=== PATIENT | male | born 1965 | race Caucasian/White ===

== ENCOUNTER 2017-03-17 09:21 | Emergency (ER) | payer OTHER ==
[~2017-03-17] VITALS: Ht 177.8 cm; Wt 95.3 kg
[2017-03-17] MEDS ORDERED: HYDR-971 PO (10:14)
[2017-03-17] MEDS ORDERED: SULF1TAB24 PO (10:14)
--- NOTE | 2017-03-17 10:15 | PHYS DOC ---
Past Medical History Past Medical History: No Pertinent History Past Surgical History: Other Additional Past Surgical Histo: NECK, SHOULDER X2- L, WRIST-L, BACK X2 Alcohol Use: Rarely Drug Use: None Adult General Chief Complaint Chief Complaint: LOWER EXTREMITY SWELLING HPI HPI Patient is a 51 year old male who presents with redness, pain, and swelling of his left knee area for 2 or 3 days. Last week, he ran into the sharp edge of a saw at work and had a puncture type laceration to his left leg which didn't bother him that much and he states didn't even bleed very much. He was fine until about 3 days ago when the anterior aspect of his leg he came red, swollen , and painful. He's had some chills yesterday. The pain and swelling is worse today. He has no history of cellulitis or MRSA. Not diabetic. He is in good general health. He does work at [employer] and is on his feet for his entire shift. Review of Systems Review of Systems Constitutional: He has had some chills, has not measured a temperature HENT: Denies nasal congestion or sore throat [] Respiratory: Denies cough or shortness of breath [] Cardiovascular: Denies chest pain GI: Some nausea, no vomiting : Denies dysuria or hematuria [] Musculoskeletal: Denies back pain or joint pain [] Integument: As in history of present illness Neurologic: Denies headache, focal weakness or sensory changes [] Physical Exam Physical Exam Constitutional: Well developed, well nourished, no acute distress, non-toxic appearance. Alert, mentating normally. HENT: Normocephalic, atraumatic, bilateral external ears normal, nose normal. [ ] Eyes: conjunctiva normal, no discharge. [] Neck: Normal range of motion, no stridor. [] Skin: Warm, dry, no erythema, no rash. [] Back: No tenderness, no CVA tenderness. [] Extremities: Left leg: There is a scabbed 1 cm benign-appearing laceration below the knee on the anterior aspect. There is generalized erythema, warmth, and swelling that goes from the mid lower leg to above the knee that has an appearance consistent with cellulitis. There is no area of abscess, no drainage from the laceration. The knee joint itself is mobile with good range of motion without pain. Neurologic: Alert and oriented X 3, normal motor function, normal sensory function, no focal deficits noted. [] Current Patient Data Vital Signs Vital Signs Date Time Temp Pulse Resp B/P (MAP) Pulse Ox O2 Delivery O2 Flow Rate FiO2 03/17/17 10:32 87 18 151/90 (110) 98 Room Air 03/17/17 09:30 97.8 97.8 EKG EKG [] Radiology/Procedures Radiology/Procedures [] Course & Med Decision Making Course & Med Decision Making Pertinent Labs and Imaging studies reviewed. (See chart for details) 51-year-old healthy nontoxic male presents with localized cellulitis to his left leg. It appears to have been started by a laceration about a week ago. There is no evidence of cellulitis. I discussed with the patient inpatient versus outpatient treatment of cellulitis. At this time he is stable and I believe a candidate for outpatient treatment. Return precautions were discussed. See instructions for plan. [] Dragon Disclaimer Dragon Disclaimer This electronic medical record was generated, in whole or in part, using a voice recognition dictation system. Departure Departure Impression: Primary Impression: Cellulitis of left leg Disposition: 01 HOME, SELF-CARE Condition: STABLE Patient Instructions: Cellulitis, [id number] Additional Instructions: For 3 days, try to stay off of your leg is much tissue can and keep elevated, elevation above the heart is ideal. This will help the pain and swelling, and also important for healing so good circulation can get to the infected tissue. We will start antibiotics for your infection. Take as directed. Drink plenty of fluids. Ibuprofen for pain if needed, purchase [id number] ibuprofen 200 mg and take 2-3 every 6 hours as needed for a stronger dose. If needed for more severe pain, hydrocodone which is an opiate. Do not take while working or driving. It will be sedating and constipating. Use sparingly. Scripts Hydrocodone/Apap 5-325 (NORCO 5-325 TABLET) 1 Each Tablet 1-2 TAB PO Q4-6HRS for leg pain, cellulitis, #20 TAB Prov: CAL MITCHELL MD 03/17/17 Sulfamethoxazole/Trimethoprim (BACTRIM DS TABLET) 1 Each Tablet 1 TAB PO BID for cellulitis of leg, #20 TAB Prov: CAL MITCHELL MD 03/17/17 CAL MITCHELL MD Mar 17, 2017 10:15
[2017-03-17 10:32] VITALS: BP 151/90
== END 2017-03-17 10:34 | disposition home or self-care (01) ==
LOC: ER 09:21
DX: L03.116 Cellulitis of left lower limb (principal)
CPT/HCPCS: 99283

== ENCOUNTER 2019-06-02 18:36 | Emergency (ER) | payer SELFPAY ==
[~2019-06-02] VITALS: Ht 177.8 cm; Wt 97.5 kg
[~2019-06-02 18:36] MED LIST: HYDR-3164 PO; SULF1TAB24 PO
[2019-06-02 19:52] VITALS: BP 202/113
[2019-06-02] MEDS ORDERED: FLUORESCEIN OPHTH TEST STRIP. ONE (19:58)
[2019-06-02] MEDS ORDERED: TETRACAINE 0.5% OPHTH SOLUTION 4ML BOTTLE. ONE (19:58)
[2019-06-02] MEDS ORDERED: [UNRECOGNIZED DRUG - REMARK] (20:03)
[2019-06-02] MEDS ORDERED: TETRACAINE 0.5% OPHTH SOLUTION 4ML BOTTLE. OD ONE (20:15)
[2019-06-02] MEDS ORDERED: FLUORESCEIN OPHTH TEST STRIP. OD ONE (20:15)
[2019-06-02] MEDS ORDERED: ERYTHROMYCIN 0.5% OPHTH OINTMENT 1GM TUBE. ONE (22:03)
--- NOTE | 2019-06-02 23:33 | PHYS DOC ---
Past Medical History Past Medical History: Hypertension Past Surgical History: Other Additional Past Surgical Histo: NECK, SHOULDER X2- L, WRIST-L, BACK X2 Alcohol Use: Rarely Drug Use: None Adult General Chief Complaint Chief Complaint: EYE PROBLEMS HPI HPI Patient is a 53 year old male who presents to the ER with complaints of metal in his right eye since 1200 today. Pt states he was grinding some metal when he felt something get stuck in his eye. His last tetanus shot was less than 2 years ago. Pt currently rates his pain a 5/10 on the pain scale, closing his eye helps to relieve the pain. The pain increases when he opens his eye or looks into bright light. He denies any vision changes. Review of Systems Review of Systems Constitutional: Denies fever or chills [] Eyes: Denies change in visual acuity,; see HPI Integument: Denies rash or skin lesions [] Neurologic: Denies headache Complete systems were reviewed and found to be within normal limits, except as documented in this note. Current Medications Current Medications Current Medications Medications (Trade) Dose Ordered Sig/Jose Alberto Start Time Stop Time Status Last Admin Dose Admin Erythromycin (Romycin) 1 inch STK-MED ONCE 06/02/19 22:03 06/02/19 22:03 DC Fluorescein Sodium (Ful-Hermelinda) 1 strip 1X ONCE 06/02/19 20:15 06/02/19 20:16 DC 06/02/19 20:12 1 STRIP Tetracaine HCl (Tetracaine) 1 drop 1X ONCE 06/02/19 20:15 06/02/19 20:16 DC 06/02/19 20:12 1 DROP Allergies Allergies Allergies Coded Allergies Type Severity Reaction Last Updated Verified No Known Drug Allergies 06/02/19 No Physical Exam Physical Exam Constitutional: Well developed, well nourished, no acute distress, non-toxic appearance. [] HENT: Normocephalic, atraumatic, bilateral external ears normal, oropharynx moist, no oral exudates, nose normal. [] Eyes: PERRLA, EOMI, no discharge; right eye visible pin point foreign bodies over the iris at 8 o'clock and 9 o'clock Neck: Normal range of motion, no tenderness, supple, no stridor. [] Cardiovascular:Heart rate regular rhythm Lungs & Thorax: respirations even and unlabored Skin: Warm, dry, no erythema, no rash. [] Extremities: No cyanosis, ROM intact Neurologic: Alert and oriented X 3, no focal deficits noted. [] Psychologic: Affect normal, judgement normal, mood normal. [] Current Patient Data Vital Signs Vital Signs Date Time Temp Pulse Resp B/P (MAP) Pulse Ox O2 Delivery O2 Flow Rate FiO2 06/02/19 19:52 97.8 85 20 202/113 (142) 98 Room Air 97.8 EKG EKG [] Radiology/Procedures Radiology/Procedures Using tetracaine and fluroscein the patient's eye was examined under Wood's lamp and an area of uptake with visible foreign body was noted at approximately 8 o'clock and 9 o'clock. There were no rust rings present on exam. The eye fauzia was used to remove both foreign bodies without any complication. Pt reported relief of pain and symptoms after both foreign bodies were removed. Patient's ocular symptoms have stabilized while they have been evaluated in the department and are appropriate for outpatient work up. No evidence of ruptured globe, retinal detachment, acute angle closure glaucoma, or deep space infection. Plan for 24 hour ophthalmologic follow up with Dr. Kruger.[] Course & Med Decision Making Course & Med Decision Making Pertinent Labs and Imaging studies reviewed. (See chart for details) Dx: R eye FB, R eye corneal and conjunctival abrasions 2 foreign bodies were removed using the eye fauzia as documented in procedures. [employer] was down at the time of discharge. Pt was provided with paper prescriptions for erythromycin eye ointment, 0.5 inch OD QID x7 days, #1 Tube and hydrocodone 5/325 mg tablets, 1 tab PO q 6 hours prn pain #12, and given written instructions for follow up with Dr. Kruger tomorrow for reevaluation. Return to the ER if symptoms worsen. Patient verbalized an understanding of home care, medications, follow-up, and return to ED instructions and was in agreement with the plan of care. [] Dragon Disclaimer Dragon Disclaimer This electronic medical record was generated, in whole or in part, using a voice recognition dictation system. Departure Departure Impression: Primary Impression: Penetrating wound of right eyeball with foreign body Additional Impressions: Foreign body of right eye Injury of right conjunctiva and corneal abrasion Disposition: 01 HOME, SELF-CARE Condition: STABLE Referrals: Curtis KRUGER MD Patient Instructions: Eye - Corneal Abrasion, [id number], Eye - Foreign Body, [id number] Problem Qualifiers Primary Impression: Penetrating wound of right eyeball with foreign body Encounter type: initial encounter Qualified Codes: S05.51XA - Penetrating wound with foreign body of right eyeball, initial encounter Additional Impressions: Foreign body of right eye Encounter type: initial encounter Qualified Codes: T15.91XA - Foreign body on external eye, part unspecified, right eye, initial encounter Injury of right conjunctiva and corneal abrasion Encounter type: initial encounter Qualified Codes: S05.01XA - Injury of conjunctiva and corneal abrasion without foreign body, right eye, initial encounter CHRISTOPHER GUTIERREZ [employer] Jun 02, 2019 23:32
--- NOTE | 2019-06-03 16:09 | VNOTE ---
CALL BACK NOTE CALL BACK I Called to check on patient. Patient reports that he is feeling better and has a follow-up appointment scheduled with Dr. Henley on Saturday of this week. CHRISTOPHER GUTIERREZ APRN Jun 03, 2019 16:09
== END 2019-06-02 22:40 | disposition home or self-care (01) ==
LOC: ER 18:36
DX: S05.51XA Penetrating wound with foreign body of right eyeball, initial encounter (principal); I10 Essential (primary) hypertension; X58.XXXA Exposure to other specified factors, initial encounter; Y93.89 Activity, other specified; Y92.89 Other specified places as the place of occurrence of the external cause; Y99.8 Other external cause status
CPT/HCPCS: 65205; 99284

== ENCOUNTER 2021-05-27 17:00 | Emergency (ER) | payer OTHER ==
[~2021-05-27] VITALS: Ht 177.8 cm; Wt 95.4 kg
[~2021-05-27 17:00] MED LIST changes: +[UNRECOGNIZED DRUG - REMARK]
[2021-05-27 17:15] VITALS: BP 170/84
[2021-05-27] MEDS ORDERED: CHLO15MO2 PO (17:38)
[2021-05-27] MEDS ORDERED: HYDR-2761 PO (17:38)
[2021-05-27] MEDS ORDERED: AMOX500T PO (17:38)
--- NOTE | 2021-05-27 17:41 | PHYS DOC ---
Past Medical History Past Medical History: Hypertension Past Surgical History: Other Additional Past Surgical Histo: NECK, SHOULDER X2- L, WRIST-L, BACK X2 Smoking Status: Current Every Day Smoker Alcohol Use: Rarely Drug Use: None General Adult EDM: Chief Complaint: DENTAL PROBLEM HPI: HPI: Patient is a 55 year old male who presents to the ED today complaining of left upper gum dental abscess, patient states it began yesterday. Patient denies any fever or trismus. Review of Systems: Review of Systems: Constitutional: Denies fever or chills. [] HENT: Reports left upper gum dental abscess. Denies nasal congestion or sore throat. [] Musculoskeletal: Denies back pain or joint pain. [] Integument: Denies rash. [] Neurologic: Denies headache, focal weakness or sensory changes. [] Psychiatric: Denies depression or anxiety. [] Heart Score: C/O Chest Pain: N/A Risk Factors: Risk Factors: DM, Current or recent (<one month) smoker, HTN, HLP, family history of CAD, obesity. Risk Scores: Score 0 - 3: 2.5% MACE over next 6 weeks - Discharge Home Score 4 - 6: 20.3% MACE over next 6 weeks - Admit for Clinical Observation Score 7 - 10: 72.7% MACE over next 6 weeks - Early Invasive Strategies Allergies: Allergies: Allergies Coded Allergies Type Severity Reaction Last Updated Verified No Known Drug Allergies 06/02/19 No Physical Exam: PE: Constitutional: Well developed, well nourished, no acute distress, non-toxic appearance. [] HENT: Normocephalic, atraumatic, bilateral external ears normal, oropharynx moist, no oral exudates, nose normal. [] Poor dentition. Left upper cheek with swelling suspicious of a dental abscess. Left upper gum with erythema. Skin: Warm, dry, no erythema, no rash. [] Back: No tenderness, no CVA tenderness. [] Extremities: No tenderness, no cyanosis, no clubbing, ROM intact, no edema. [] Neurologic: Alert and oriented X 3, normal motor function, normal sensory function, no focal deficits noted. [] Psychologic: Affect normal, judgement normal, mood normal. [] EKG: EKG: [] Radiology/Procedures: Radiology/Procedures: [] Course & Med Decision Making: Course & Med Decision Making Pertinent Labs and Imaging studies reviewed. (See chart for details) This a 55-year-old male patient presenting to the ED today with a dental abscess. Patient has very poor dentition. Was advised to consider seeing a dentist. Discharged on amoxicillin and Peridex. Judion Disclaimer: Dragon Disclaimer: This electronic medical record was generated, in whole or in part, using a voice recognition dictation system. Departure Departure Impression: Primary Impression: Dental abscess Disposition: HOME / SELF CARE / HOMELESS Condition: STABLE Referrals: ADRY KAHN (PCP) Follow-up with the dentist as soon as possible Patient Instructions: Dental Abscess Additional Instructions: You have dental infection. Please ensure you complete your antibiotics and follow-up with a dentist in 1 to 2 weeks Scripts Chlorhexidine Gluconate (PERIDEX) 15 Ml Mouthwash 15 ML PO BID for 30 Days, #946 ML 0 Refills Prov: HERNÁN MERINO APRN 05/27/21 Hydrocodone Bit/Acetaminophen (HYDROCODONE-APAP 5-325 ) 1 Tab Tablet 1 TAB PO PRN Q6HRS PRN for PAIN, #10 TAB 0 Refills Prov: HERNÁN MERINO APRN 05/27/21 Amoxicillin (AMOXICILLIN) 500 Mg Tablet 1 TAB PO BID, #20 TAB Prov: HERNÁN MERINO APRN 05/27/21 HERNÁN MERINO APRN May 27, 2021 17:41
== END 2021-05-27 17:47 | disposition home or self-care (01) ==
LOC: ER 17:00
DX: K04.7 Periapical abscess without sinus (principal); I10 Essential (primary) hypertension; F17.200 Nicotine dependence, unspecified, uncomplicated
CPT/HCPCS: 99283